=== PATIENT | female | born 1940 | race Caucasian/White ===

== ENCOUNTER 2016-06-07 08:34 | Emergency (ER) | payer MEDICARE ==
[2016-06-07] MEDS ORDERED: IPRATROPIUM-ALBUTEROL 3 ML NEB INHALATION STA (09:10)
[2016-06-07] MEDS ORDERED: predniSONE 20 MG TAB PO STA (09:10)
--- NOTE | 2016-06-07 09:43 | ED ---
SOB HPI - General Chief Complaint: Shortness of Breath Stated Complaint: diff breathing Time Seen by Provider: 06/07/16 09:05 Source: patient, RN notes reviewed Mode of arrival: wheelchair Limitations: no limitations - History of Present Illness Initial Comments: This patient is a 76-year-old woman with history of pulmonary fibrosis, who presents with worsening of her underlying shortness of breath. History is from both patient and her daughter. It seems that things been getting worse since Wednesday. There has also been a cough going on for at least 3 days, which is producing some dark or brown sputum. In addition for the last couple of days patient is having a heavy feeling on across her chest. MD Complaint: shortness of breath, cough -: days(s) Severity: mild Quality: other (Heavy) Consistency: constant Improves With: nothing Worsens With: nothing Known History Of: other (Pulmonary fibrosis) Associated Symptoms: cough, sputum production - Related Data Home Medications Medication Instructions Recorded Confirmed Ascorbic Acid [Vitamin C] 500 mg PO BID 06/07/16 06/07/16 Aspirin EC [Ecotrin Low Dose] 81 mg PO HS 06/07/16 06/07/16 Calcium/Magnesium/Zinc 1 tab PO DAILY 06/07/16 06/07/16 [Wzrfjme-Zyclnxzjl-Orym Tablet] Celecoxib [CeleBREX] 200 mg PO BID 06/07/16 06/07/16 Cholecalciferol [Vitamin D3] 2,000 unit PO DAILY 06/07/16 06/07/16 Cyanocobalamin (Vitamin B-12) 5,000 mcg PO DAILY 06/07/16 06/07/16 [Vitamin B12] L.acidoph,Paracasei, B.lactis 1 cap PO BID 06/07/16 06/07/16 [Probiotic] Latanoprost Ophth [Xalatan 0.005%] 1 drops BOTH EYES 06/07/16 06/07/16 Mometasone/Formoterol [Dulera 200 2 puff INHALATION RT-BID 06/07/16 06/07/16 Mcg/5 Mcg Inhaler] Multivits-Min/Iron/FA/Lutein 1 tab PO DAILY 06/07/16 06/07/16 [Centrum Silver Women Tablet] N-Acetyl Cysteine 600 mg PO BID 06/07/16 06/07/16 [place]-3 Fatty Acids/Fish Oil [Fish 1 cap PO BID 06/07/16 06/07/16 Oil 1,000 mg Softgel] Turmeric Root Extract [Turmeric] 500 mg PO DAILY 06/07/16 06/07/16 Verapamil HCl [Verapamil ER] 240 mg PO DAILY 06/07/16 06/07/16 Vit A/Vit C/Vit E/Zinc/Copper 1 cap PO DAILY 06/07/16 06/07/16 [ICAPS SOFTGEL] predniSONE 5 mg PO DAILY 06/07/16 06/07/16 Previous Rx's Medication Instructions Recorded Doxycycline Hyclate [Vibramycin] 100 mg PO BID #14 cap 06/07/16 predniSONE 60 mg PO DAILY #30 tab 06/07/16 traMADol HCl [Ultram] 50 mg PO Q6H PRN #20 tab 06/07/16 Allergies Allergy/AdvReac Type Severity Reaction Status Date / Time No Known Allergies Allergy Verified 06/07/16 12:15 Review of Systems ROS Statement: Those systems with pertinent positive or pertinent negative responses have been documented in the HPI. ROS Other: All systems not noted in ROS Statement are negative. Constitutional: Denies: fever, chills ENT: Denies: throat pain Respiratory: Reports: as per HPI, cough, dyspnea. Denies: wheezes, hemoptysis, stridor Cardiovascular: Reports: as per HPI, chest pain, dyspnea on exertion. Denies: orthopnea, edema, syncope Gastrointestinal: Denies: abdominal pain, nausea, vomiting Genitourinary: Denies: dysuria, hematuria Musculoskeletal: Denies: back pain Skin: Denies: rash Neurological: Denies: headache, weakness, numbness Past Medical History Past Medical History: Hypertension, Osteoarthritis (OA) Additional Past Medical History / Comment(s): pulmonary fibrosis, glaucoma History of Any Multi-Drug Resistant Organisms: None Reported Past Surgical History: Orthopedic Surgery Additional Past Surgical History / Comment(s): right rotator cuff Past Psychological History: No Psychological Hx Reported Smoking Status: Former smoker Past Alcohol Use History: None Reported Past Drug Use History: None Reported General Exam Limitations: no limitations General appearance: alert, in distress (Tachypnea), cachectic Head exam: Present: atraumatic, normocephalic Eye exam: Present: normal appearance ENT exam: Present: normal oropharynx Respiratory exam: Present: respiratory distress, rales (Reveals throughout), decreased breath sounds. Absent: wheezes, rhonchi, stridor Cardiovascular Exam: Present: regular rate, normal rhythm, normal heart sounds. Absent: systolic murmur, diastolic murmur, rubs, gallop GI/Abdominal exam: Present: soft. Absent: distended, tenderness, guarding, rebound, mass Extremities exam: Present: normal inspection, normal capillary refill. Absent: pedal edema, calf tenderness Back exam: Present: normal inspection. Absent: CVA tenderness (R), CVA tenderness (L) Neurological exam: Present: alert Skin exam: Present: warm, dry, intact, normal color. Absent: rash, cyanosis, diaphoretic, pallor, mottled Course Vital Signs 06/07/16 06/07/16 06/07/16 08:42 09:22 09:41 Temperature 98.0 F Pulse Rate 88 84 Respiratory 20 16 24 Rate Blood Pressure 133/59 130/58 O2 Sat by Pulse 97 97 Oximetry 06/07/16 06/07/16 06/07/16 10:30 10:42 11:31 Temperature Pulse Rate 72 74 93 Respiratory 22 Rate Blood Pressure 135/68 O2 Sat by Pulse 100 Oximetry 06/07/16 11:40 Temperature Pulse Rate 87 Respiratory Rate Blood Pressure O2 Sat by Pulse Oximetry Medical Decision Making - Medical Decision Making Patient is feeling better following treatment and would like to go home. 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 Discussed the appropriate return parameters as well as further care and follow-up. - Lab Data Result diagrams: 06/07/16 09:40 06/07/16 09:40 Lab Results 06/07/16 06/07/16 06/07/16 Range/Units 09:40 09:40 09:40 WBC 11.1 H (3.8-10.6) k/uL RBC 3.70 L (3.80-5.40) m/uL Hgb 10.9 L (11.4-16.0) gm/dL Hct 33.0 L (34.0-46.0) % MCV 89.2 (80.0-100.0) fL MCH 29.4 (25.0-35.0) pg MCHC 32.9 (31.0-37.0) g/dL RDW 14.9 (11.5-15.5) % Plt Count 203 (150-450) k/uL Neutrophils % 83 % Lymphocytes % 4 % Monocytes % 10 % Eosinophils % 0 % Basophils % 0 % Neutrophils # 9.2 H (1.3-7.7) k/uL Lymphocytes # 0.4 L (1.0-4.8) k/uL Monocytes # 1.1 H (0-1.0) k/uL Eosinophils # 0.0 (0-0.7) k/uL Basophils # 0.0 (0-0.2) k/uL D-Dimer (<0.60) mg/L FEU Sodium 141 (137-145) mmol/L Potassium 4.5 (3.5-5.1) mmol/L Chloride 103 (98-107) mmol/L Carbon Dioxide 27 (22-30) mmol/L Anion Gap 11 mmol/L BUN 13 (7-17) mg/dL Creatinine 0.60 (0.52-1.04) mg/dL Est GFR (MDRD) Af Amer >60 (>60 ml/min/1.73 sqM) Est GFR (MDRD) Non-Af >60 (>60 ml/min/1.73 sqM) Glucose 95 (74-99) mg/dL Calcium 9.7 (8.4-10.2) mg/dL Magnesium 2.0 (1.6-2.3) mg/dL Total Bilirubin 0.4 (0.2-1.3) mg/dL AST 48 H (14-36) U/L ALT 41 (9-52) U/L Alkaline Phosphatase 87 (38-126) U/L Total Creatine Kinase 42 (30-135) U/L CK-MB (CK-2) 1.3 (0.0-2.4) ng/mL CK-MB (CK-2) Rel Index 3.1 Troponin I <0.012 (0.000-0.034) ng/mL NT-Pro-B Natriuret Pep pg/mL Total Protein 6.9 (6.3-8.2) g/dL Albumin 3.6 (3.5-5.0) g/dL 06/07/16 06/07/16 Range/Units 09:40 09:40 WBC (3.8-10.6) k/uL RBC (3.80-5.40) m/uL Hgb (11.4-16.0) gm/dL Hct (34.0-46.0) % MCV (80.0-100.0) fL MCH (25.0-35.0) pg MCHC (31.0-37.0) g/dL RDW (11.5-15.5) % Plt Count (150-450) k/uL Neutrophils % % Lymphocytes % % Monocytes % % Eosinophils % % Basophils % % Neutrophils # (1.3-7.7) k/uL Lymphocytes # (1.0-4.8) k/uL Monocytes # (0-1.0) k/uL Eosinophils # (0-0.7) k/uL Basophils # (0-0.2) k/uL D-Dimer 0.79 H (<0.60) mg/L FEU Sodium (137-145) mmol/L Potassium (3.5-5.1) mmol/L Chloride (98-107) mmol/L Carbon Dioxide (22-30) mmol/L Anion Gap mmol/L BUN (7-17) mg/dL Creatinine (0.52-1.04) mg/dL Est GFR (MDRD) Af Amer (>60 ml/min/1.73 sqM) Est GFR (MDRD) Non-Af (>60 ml/min/1.73 sqM) Glucose (74-99) mg/dL Calcium (8.4-10.2) mg/dL Magnesium (1.6-2.3) mg/dL Total Bilirubin (0.2-1.3) mg/dL AST (14-36) U/L ALT (9-52) U/L Alkaline Phosphatase (38-126) U/L Total Creatine Kinase (30-135) U/L CK-MB (CK-2) (0.0-2.4) ng/mL CK-MB (CK-2) Rel Index Troponin I (0.000-0.034) ng/mL NT-Pro-B Natriuret Pep 103 pg/mL Total Protein (6.3-8.2) g/dL Albumin (3.5-5.0) g/dL - EKG Data -: EKG Interpreted by [place] EKG shows normal: sinus rhythm, axis (Normal), intervals (Normal) Interpretation: LVH Disposition Clinical Impression: Acute exacerbation of chronic obstructive airways disease, Pulmonary fibrosis Disposition: HOME SELF-CARE Condition: Fair Instructions: Chronic Bronchitis (ED), Pulmonary Fibrosis (ED) Prescriptions: Doxycycline Hyclate [Vibramycin] 100 mg PO BID #14 cap predniSONE 60 mg PO DAILY #30 tab traMADol HCl [Ultram] 50 mg PO Q6H PRN #20 tab PRN Reason: Pain Referrals: Meghan Ramirez MD [Primary Care Provider] - 1-2 days Severo Rao MD [STAFF PHYSICIAN] - 1-2 days
[2016-06-07 09:54] LABS: Basophils % (A) 0 %; CH 29.9; CHCM 33.8; Eosinophils % (A) 0 %; HDW 3.11; HGB 10.9 gm/dL (11.4-16.0); Luc # (Auto) 0.38; Luc % (Auto) 3; Lymphocytes # (A) 0.4 k/uL (1.0-4.8); Lymphocytes % (A) 4 %; MCH 29.4 pg (25.0-35.0); MCHC 32.9 g/dL (31.0-37.0); MCV 89.2 fL (80.0-100.0); Mean Platelet Volume 7.5; Monocytes # (A) 1.1 k/uL (0-1.0); Monocytes % (A) 10 %; Neutrophils # (A) 9.2 k/uL (1.3-7.7); Neutrophils % (A) 83 %; RDW 14.9 % (11.5-15.5); WBC 11.1 k/uL (3.8-10.6); WBC (Perox) 11.07
[2016-06-07 10:04] LABS: ALT 41 U/L (9-52); AST 48 U/L (14-36); Alkaline Phosphatase 87 U/L (38-126); Anion Gap 11 mmol/L; Blood Urea Nitrogen 13 mg/dL (7-17); Calcium 9.7 mg/dL (8.4-10.2); Carbon Dioxide 27 mmol/L (22-30); Chloride 103 mmol/L (98-107); Glucose 95 mg/dL (74-99); Non-African American GFR(MDRD) >60 (>60 ml/min/1.73 sqM); Potassium 4.5 mmol/L (3.5-5.1); Sodium 141 mmol/L (137-145); Total Bilirubin 0.4 mg/dL (0.2-1.3); Total Protein 6.9 g/dL (6.3-8.2)
--- NOTE | 2016-06-07 10:07 | XR ---
EXAMINATION TYPE: XR chest 1V portable DATE OF EXAM: 06/07/2016 9:58 AM COMPARISON: 06/10/2012 HISTORY: Cough TECHNIQUE: Single frontal view of the chest is obtained. FINDINGS: Coarsened interstitial pattern seen. There is mild cardiomegaly. No pneumothorax. Arthropa thy shoulders. Findings are similar to the previous exam. Somewhat irregular 1 cm nodule lobe. IMPRESSION: 1. Findings suggest pulmonary fibrosis with no acute infiltrate. 2. There is a 1 cm area of nodularity right upper lobe. This may represent superimposed structures. R ecommend short-term follow-up PA and lateral view chest to exclude pulmonary nodule.
[2016-06-07 10:13] LABS: Creatine Kinase 42 U/L (30-135)
[2016-06-07 10:27] LABS: Creatine Kinase MB 1.3 ng/mL (0.0-2.4); Troponin I <0.012 ng/mL (0.000-0.034)
[2016-06-07] MEDS ORDERED: ALBUTEROL NEBULIZED 2.5 MG/3 ML INHALATION STA (10:58)
[2016-06-07] MEDS ORDERED: DOXYCYCLINE 50 MG CAP PO STA (10:58)
[2016-06-07] MEDS ORDERED: traMADol 50 MG TAB PO STA (12:31)
[2016-06-07 12:41] VITALS: TEMP 97.9
[2016-06-07 13:06] VITALS: BP 119/56; PULSE 84; RESP 15
== END 2016-06-07 13:34 | disposition home or self-care (01) ==
LOC: EC 08:34
DX: J44.1 Chronic obstructive pulmonary disease with (acute) exacerbation (principal); J84.10 Pulmonary fibrosis, unspecified; Z79.51 Long term (current) use of inhaled steroids; I10 Essential (primary) hypertension; Z79.82 Long term (current) use of aspirin; Z79.899 Other long term (current) drug therapy; M19.90 Unspecified osteoarthritis, unspecified site; Z87.891 Personal history of nicotine dependence
CPT/HCPCS: 36415; 94640 ×2; 93005; 85379; 83880; 80053; 82550; 82553; 83735; 84484; 85025; 71010; 99285; J7512

== ENCOUNTER 2016-06-12 10:37 | Inpatient (IN) | payer MEDICARE ==
--- NOTE | 2016-06-12 11:09 | ED ---
General Adult HPI - General Chief complaint: Shortness of Breath Stated complaint: BRYCE Time Seen by Provider: 06/12/16 11:04 Source: patient, family, RN notes reviewed, old records reviewed Mode of arrival: wheelchair Limitations: no limitations - History of Present Illness Initial comments: This is a 76-year-old female the ER for evaluation of shortness of breath, patient has significant history of asthma COPD from pulmonary fibrosis and hypertension. Patient is been on. She was outpatient basis without any help. Patient states her heart rate ranges from 80s to 150s with no history of A. fib or a flutter. Patient denies any specific chest pain at this time, shortness of breath and symptoms are worse with exertion. Again no travel history nursing hospitalizations or sick contacts. No productive cough no fever - Related Data Home Medications Medication Instructions Recorded Confirmed Ascorbic Acid [Vitamin C] 1,000 mg PO BID 06/07/16 06/12/16 Aspirin EC [Ecotrin Low Dose] 81 mg PO HS 06/07/16 06/12/16 Celecoxib [CeleBREX] 200 mg PO BID PRN 06/07/16 06/12/16 Cholecalciferol [Vitamin D3] 5,000 unit PO DAILY 06/07/16 06/12/16 Cyanocobalamin (Vitamin B-12) 5,000 mcg PO DAILY 06/07/16 06/12/16 [Vitamin B12] L.acidoph,Paracasei, B.lactis 2 cap PO DAILY 06/07/16 06/12/16 [Probiotic] Latanoprost Ophth [Xalatan 0.005%] 1 drops BOTH EYES HS 06/07/16 06/12/16 Mometasone/Formoterol [Dulera 200 2 puff INHALATION RT-BID 06/07/16 06/12/16 Mcg/5 Mcg Inhaler] Multivits-Min/Iron/FA/Lutein 1 tab PO DAILY 06/07/16 06/12/16 [Centrum Silver Women Tablet] N-Acetyl Cysteine 600 mg PO BID 06/07/16 06/12/16 [place]-3 Fatty Acids/Fish Oil [Fish 1 cap PO BID 06/07/16 06/12/16 Oil 1,000 mg Softgel] Turmeric Root Extract [Turmeric] 500 mg PO DAILY 06/07/16 06/12/16 Verapamil HCl [Verapamil ER] 240 mg PO DAILY 06/07/16 06/12/16 Vit A/Vit C/Vit E/Zinc/Copper 1 cap PO DAILY 06/07/16 06/12/16 [ICAPS SOFTGEL] predniSONE 5 mg PO DAILY 06/07/16 06/12/16 Calcium Carbonate [Calcium] 600 mg PO DAILY 06/12/16 06/12/16 Previous Rx's Medication Instructions Recorded Doxycycline Hyclate [Vibramycin] 100 mg PO BID #14 cap 06/07/16 predniSONE 60 mg PO DAILY #30 tab 06/07/16 Allergies Allergy/AdvReac Type Severity Reaction Status Date / Time No Known Allergies Allergy Verified 06/12/16 11:06 Review of Systems ROS Statement: Those systems with pertinent positive or pertinent negative responses have been documented in the HPI. ROS Other: All systems not noted in ROS Statement are negative. Past Medical History Past Medical History: Hypertension, Osteoarthritis (OA) Additional Past Medical History / Comment(s): pulmonary fibrosis, glaucoma History of Any Multi-Drug Resistant Organisms: None Reported Past Surgical History: Orthopedic Surgery Additional Past Surgical History / Comment(s): right rotator cuff Past Psychological History: No Psychological Hx Reported Smoking Status: Former smoker Past Alcohol Use History: None Reported Past Drug Use History: None Reported General Exam Limitations: no limitations General appearance: alert, in no apparent distress Head exam: Present: atraumatic, normocephalic, normal inspection Eye exam: Present: normal appearance, PERRL, EOMI. Absent: scleral icterus, conjunctival injection, periorbital swelling ENT exam: Present: normal exam, mucous membranes moist Neck exam: Present: normal inspection. Absent: tenderness, meningismus, lymphadenopathy Respiratory exam: Present: normal lung sounds bilaterally, wheezes, decreased breath sounds, prolonged expiratory. Absent: respiratory distress, rales, rhonchi, stridor Cardiovascular Exam: Present: normal rhythm, tachycardia, irregular rhythm, normal heart sounds. Absent: systolic murmur, diastolic murmur, rubs, gallop, clicks GI/Abdominal exam: Present: soft, normal bowel sounds. Absent: distended, tenderness, guarding, rebound, rigid Extremities exam: Present: normal inspection, full ROM, normal capillary refill. Absent: tenderness, pedal edema, joint swelling, calf tenderness Back exam: Present: normal inspection Neurological exam: Present: alert, oriented X3, CN II-XII intact Psychiatric exam: Present: normal affect, normal mood Skin exam: Present: warm, dry, intact, normal color. Absent: rash Course Vital Signs 06/12/16 06/12/16 06/12/16 10:39 11:17 11:19 Temperature 99.4 F 101.4 F H Pulse Rate 107 H Pulse Rate [ 146 H Apical] Respiratory 24 Rate Blood Pressure 140/93 O2 Sat by Pulse 93 L Oximetry 06/12/16 06/12/16 11:28 11:43 Temperature Pulse Rate 148 H 89 Pulse Rate [ Apical] Respiratory Rate Blood Pressure O2 Sat by Pulse Oximetry - Reevaluation(s) Reevaluation #1: 06/12/16 12:19 Does have good rate control at this time, fever control and feeling better Reevaluation #2: 06/12/16 12:19 Patient is still short of breath aside from region EKG Findings - EKG Comments: EKG Findings:: EKG shows a flutter rate of 154, QRS 80, QTC 432 Medical Decision Making - Medical Decision Making Studies of the etiology of shortness of breath cough congestion fever, patient' s positive pneumonia and x-ray, patient also had A. fib with RVR which is currently rate controlled. 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 fib with RVR, on anticoagulation, patient started on IV antibiotics broad-spectrum since she was recently admitted to the hospital. - Lab Data Result diagrams: 06/12/16 11:14 06/12/16 11:14 Lab Results 06/12/16 06/12/16 06/12/16 Range/Units 11:14 11:14 11:14 WBC 23.1 H (3.8-10.6) k/uL RBC 3.83 (3.80-5.40) m/uL Hgb 11.1 L (11.4-16.0) gm/dL Hct 33.6 L (34.0-46.0) % MCV 87.8 (80.0-100.0) fL MCH 28.9 (25.0-35.0) pg MCHC 32.9 (31.0-37.0) g/dL RDW 14.4 (11.5-15.5) % Plt Count 297 (150-450) k/uL Neutrophils % 84 % Lymphocytes % 4 % Monocytes % 10 % Eosinophils % 0 % Basophils % 0 % Neutrophils # 19.3 H (1.3-7.7) k/uL Lymphocytes # 0.8 L (1.0-4.8) k/uL Monocytes # 2.2 H (0-1.0) k/uL Eosinophils # 0.0 (0-0.7) k/uL Basophils # 0.1 (0-0.2) k/uL PT (9.0-12.0) sec INR (<1.1) APTT (22.0-30.0) sec Sodium 144 (137-145) mmol/L Potassium 4.0 (3.5-5.1) mmol/L Chloride 105 (98-107) mmol/L Carbon Dioxide 26 (22-30) mmol/L Anion Gap 13 mmol/L BUN 18 H (7-17) mg/dL Creatinine 0.60 (0.52-1.04) mg/dL Est GFR (MDRD) Af Amer >60 (>60 ml/min/1.73 sqM) Est GFR (MDRD) Non-Af >60 (>60 ml/min/1.73 sqM) Glucose 89 (74-99) mg/dL Plasma Lactic Acid Gaurav 1.8 (0.7-2.0) mmol/L Calcium 9.6 (8.4-10.2) mg/dL Phosphorus 2.3 L (2.5-4.5) mg/dL Magnesium 2.0 (1.6-2.3) mg/dL Total Bilirubin 0.8 (0.2-1.3) mg/dL AST 36 (14-36) U/L ALT 53 H (9-52) U/L Alkaline Phosphatase 93 (38-126) U/L Total Protein 6.8 (6.3-8.2) g/dL Albumin 3.3 L (3.5-5.0) g/dL 06/12/16 Range/Units 11:14 WBC (3.8-10.6) k/uL RBC (3.80-5.40) m/uL Hgb (11.4-16.0) gm/dL Hct (34.0-46.0) % MCV (80.0-100.0) fL MCH (25.0-35.0) pg MCHC (31.0-37.0) g/dL RDW (11.5-15.5) % Plt Count (150-450) k/uL Neutrophils % % Lymphocytes % % Monocytes % % Eosinophils % % Basophils % % Neutrophils # (1.3-7.7) k/uL Lymphocytes # (1.0-4.8) k/uL Monocytes # (0-1.0) k/uL Eosinophils # (0-0.7) k/uL Basophils # (0-0.2) k/uL PT 10.7 (9.0-12.0) sec INR 1.1 (<1.1) APTT 20.7 L (22.0-30.0) sec Sodium (137-145) mmol/L Potassium (3.5-5.1) mmol/L Chloride (98-107) mmol/L Carbon Dioxide (22-30) mmol/L Anion Gap mmol/L BUN (7-17) mg/dL Creatinine (0.52-1.04) mg/dL Est GFR (MDRD) Af Amer (>60 ml/min/1.73 sqM) Est GFR (MDRD) Non-Af (>60 ml/min/1.73 sqM) Glucose (74-99) mg/dL Plasma Lactic Acid Gaurav (0.7-2.0) mmol/L Calcium (8.4-10.2) mg/dL Phosphorus (2.5-4.5) mg/dL Magnesium (1.6-2.3) mg/dL Total Bilirubin (0.2-1.3) mg/dL AST (14-36) U/L ALT (9-52) U/L Alkaline Phosphatase (38-126) U/L Total Protein (6.3-8.2) g/dL Albumin (3.5-5.0) g/dL - Radiology Data Radiology results: report reviewed (Chest x-ray positive for pneumonia), image reviewed Critical Care Time Critical Care Time: Yes Total Critical Care Time: 31 Disposition Clinical Impression: Acute exacerbation of chronic obstructive airways disease, Pulmonary fibrosis, Fever, Community acquired pneumonia, Atrial fibrillation with RVR Disposition: ADMITTED IP TO THIS [facility] Condition: Serious Referrals: Meghan Ramirez MD [Primary Care Provider] - 1-2 days
[2016-06-12] MEDS ORDERED: DILTIAZEM 5 MG/ML 5 ML VIAL IVP STA (11:13)
[2016-06-12] MEDS ORDERED: IPRATROPIUM-ALBUTEROL 3 ML NEB INHALATION STA (11:13)
[2016-06-12] MEDS ORDERED: KETOROLAC 30 MG/ML 1 ML VIAL IVP STA (11:30)
[2016-06-12] MEDS ORDERED: ACETAMINOPHEN IV (For NPO) 1,000 MG in EMPTY BAG 1 BAG IVPB STA (11:30)
[2016-06-12 11:33] LABS: Basophils # (A) 0.1 k/uL (0-0.2); Basophils % (A) 0 %; CH 29.6; CHCM 33.9; Eosinophils % (A) 0 %; HCT 33.6 % (34.0-46.0); HDW 3.28; HGB 11.1 gm/dL (11.4-16.0); Luc # (Auto) 0.69; Luc % (Auto) 3; Lymphocytes # (A) 0.8 k/uL (1.0-4.8); Lymphocytes % (A) 4 %; MCH 28.9 pg (25.0-35.0); MCHC 32.9 g/dL (31.0-37.0); MCV 87.8 fL (80.0-100.0); Mean Platelet Volume 7.1; Monocytes # (A) 2.2 k/uL (0-1.0); Monocytes % (A) 10 %; Neutrophils # (A) 19.3 k/uL (1.3-7.7); Neutrophils % (A) 84 %; RBC 3.83 m/uL (3.80-5.40); RDW 14.4 % (11.5-15.5); WBC 23.1 k/uL (3.8-10.6); WBC (Perox) 24.06
[2016-06-12 11:53] LABS: ALT 53 U/L (9-52); AST 36 U/L (14-36); Alkaline Phosphatase 93 U/L (38-126); Anion Gap 13 mmol/L; Blood Urea Nitrogen 18 mg/dL (7-17); Calcium 9.6 mg/dL (8.4-10.2); Carbon Dioxide 26 mmol/L (22-30); Chloride 105 mmol/L (98-107); Glucose 89 mg/dL (74-99); Non-African American GFR(MDRD) >60 (>60 ml/min/1.73 sqM); Phosphorous 2.3 mg/dL (2.5-4.5); Sodium 144 mmol/L (137-145); Total Bilirubin 0.8 mg/dL (0.2-1.3); Total Protein 6.8 g/dL (6.3-8.2)
[2016-06-12 12:08] LABS: INR 1.1 (<1.1); Prothrombin Time 10.7 sec (9.0-12.0)
[2016-06-12 12:14] LABS: Partial Thromboplastin Time 20.7 sec (22.0-30.0)
[2016-06-12] MEDS ORDERED: LEVOFLOXACIN 750MG-D5W PMX 750 MG in DEXTROSE/WATER 1 150ML.BAG IVPB STA (12:17)
--- NOTE | 2016-06-12 12:18 | XR ---
EXAMINATION TYPE: XR chest 1V portable DATE OF EXAM: 06/12/2016 12:12 PM COMPARISON: Chest x-ray June 07, 2016 HISTORY: Cough, congestion, and fever. TECHNIQUE: Single AP portable frontal view of the chest is obtained. FINDINGS: There is reticular interstitial changes throughout both lungs suggesting fibrosis. Acute a reas of infiltrate are difficult to entirely exclude for reference right midlung and left basilar lev els. Low lung volumes are redemonstrated. The cardiac silhouette size is stable and upper limits of normal with atherosclerotic thoracic aorta. The osseous structures are demineralized. IMPRESSION: Low lung volumes with moderate to severe chronic interstitial fibrosis bilaterally, acut e areas of infiltrate right mid and bibasilar levels are difficult to exclude on background of chroni c change.
[2016-06-12] MEDS ORDERED: PNEUMONIA PROTOCOL UTILIZED 1 EACH MISC PO PRN (12:21)
[2016-06-12] MEDS ORDERED: PIPERACILLIN-TAZOBACTAM 3.375 GM in DEXTROSE/WATER 1 50ML.BAG IVPB STA (12:21)
[2016-06-12] MEDS ORDERED: HEPARIN SODIUM,PORCINE 5,000 UNIT/ML 1 ML VIAL IV ONE (12:21)
[2016-06-12] MEDS: HEPARIN SODIUM,PORCINE/D5W PMX 25,000 UNIT in DEXTROSE/WATER 1 500ML.BAG IV SCH (13:26)
[2016-06-12] MEDS: SODIUM CHLORIDE 0.9% 1,000 ML IV SCH ×2 (15:14→22:54)
[2016-06-12] MEDS: IPRATROPIUM-ALBUTEROL 3 ML NEB INHALATION SCH ×2 (15:45→20:21)
[2016-06-12] MEDS ORDERED: IPRATROPIUM-ALBUTEROL 3 ML NEB INHALATION PRN (15:46)
--- NOTE | 2016-06-12 16:03 | P.HPIM ---
History of Present Illness H&P Date: 06/12/16 Chief Complaint: Shortness of breath with cough and tachycardia This is a 76-year-old female, patient of Dr. Ramirez. She has a known past medical history of pulmonary fibrosis and hypertension. Patient presented to the emergency room with complaints of worsening shortness of breath, cough and tachycardia. Patient was in the emergency room on June 07 and treated for bronchitis and COPD exacerbation. She was sent home with doxycycline and her prednisone was increased to 60 mg daily. Patient reports that she has not had much improvement with the cough or shortness of breath even with medications. She became concerned because earlier today she started to be tachycardic. She reports that her heart was racing she checked her pulse ox and the heart rate was up into the 150s. This was new for her's she came into the emergency room for evaluation. EKG had shown atrial flutter with a heart rate of 154. Patient was given IV Cardizem push with IV heparin. Patient did convert back to normal sinus rhythm and was admitted to the telemetry floor. Chest x-ray shows low lung volumes with moderate to severe chronic interstitial fibrosis bilaterally, acute areas of infiltrate in the right mid and by basilar areas are difficult to exclude on background of chronic change. Patient was started on IV Levaquin and IV Zosyn for possible pneumonia. She did have a temp of 101.4 and a white count of 23.1. Both pulmonary and cardiology services have been consulted due to pneumonia and atrial flutter with rapid ventricular response. Patient denies any chills sweats, any muscle aches or pains. She denies any nausea or vomiting. Denies any bowel movement changes. Denies any burning with urination. Review of Systems Please refer to chart for any further details Past Medical History Past Medical History: Hypertension, Osteoarthritis (OA), Respiratory Disorder Additional Past Medical History / Comment(s): Home O2 at 2L/NC ATC, pulmonary fibrosis, bronchitis, glaucoma bilaterally, OA multiple joints, History of Any Multi-Drug Resistant Organisms: None Reported Past Surgical History: Orthopedic Surgery Additional Past Surgical History / Comment(s): right rotator cuff, colonoscopy- normal Past Anesthesia/Blood Transfusion Reactions: Motion Sickness, Postoperative Nausea & Vomiting (PONV) Past Psychological History: No Psychological Hx Reported Additional Psychological History / Comment(s): Pt resides alone. She uses no assistive device. She drives. She has home oxygen. Smoking Status: Former smoker Past Alcohol Use History: None Reported Additional Past Alcohol Use History / Comment(s): Pt started smoking as a teen and quit 35-40 yrs ago. Past Drug Use History: None Reported - Past Family History Father Family Medical History: Liver Disease Mother Family Medical History: Respiratory Disorder Additional Family Medical History / Comment(s): Pulmonary fibrosis- of this at the age of 83 or 84yrs. Medications and Allergies Home Medications Medication Instructions Recorded Confirmed Type Ascorbic Acid [Vitamin C] 1,000 mg PO BID 06/07/16 06/12/16 History Aspirin EC [Ecotrin Low Dose] 81 mg PO HS 06/07/16 06/12/16 History Celecoxib [CeleBREX] 200 mg PO BID PRN 06/07/16 06/12/16 History Cholecalciferol [Vitamin D3] 5,000 unit PO DAILY 06/07/16 06/12/16 History Cyanocobalamin (Vitamin B-12) 5,000 mcg PO DAILY 06/07/16 06/12/16 History [Vitamin B12] L.acidoph,Paracasei, B.lactis 2 cap PO DAILY 06/07/16 06/12/16 History [Probiotic] Latanoprost Ophth [Xalatan 0.005%] 1 drops BOTH EYES HS 06/07/16 06/12/16 History Mometasone/Formoterol [Dulera 200 2 puff INHALATION RT-BID 06/07/16 06/12/16 History Mcg/5 Mcg Inhaler] Multivits-Min/Iron/FA/Lutein 1 tab PO DAILY 06/07/16 06/12/16 History [Centrum Silver Women Tablet] N-Acetyl Cysteine 600 mg PO BID 06/07/16 06/12/16 History [place]-3 Fatty Acids/Fish Oil [Fish 1 cap PO BID 06/07/16 06/12/16 History Oil 1,000 mg Softgel] Turmeric Root Extract [Turmeric] 500 mg PO DAILY 06/07/16 06/12/16 History Verapamil HCl [Verapamil ER] 240 mg PO DAILY 06/07/16 06/12/16 History Vit A/Vit C/Vit E/Zinc/Copper 1 cap PO DAILY 06/07/16 06/12/16 History [ICAPS SOFTGEL] predniSONE 5 mg PO DAILY 06/07/16 06/12/16 History Calcium Carbonate [Calcium] 600 mg PO DAILY 06/12/16 06/12/16 History Allergies Allergy/AdvReac Type Severity Reaction Status Date / Time No Known Allergies Allergy Verified 06/12/16 11:06 Physical Exam Vitals: Vital Signs Temp Pulse Resp BP Pulse Ox 06/12/16 15:45 88 06/12/16 14:27 98.2 F 86 18 101/57 96 06/12/16 13:12 86 93/52 94 L 06/12/16 12:42 88 98/45 95 06/12/16 12:27 90 106/51 94 L Intake and Output 06/12/16 06/12/16 06/12/16 06:59 14:59 22:59 Other: Weight 55.7 kg Patient Weight 06/13/16 06:59 Weight 55.7 kg Head normocephalic Neck supple Lungs crackles noted bilaterally from the pulmonary fibrosis Heart regular rate and rhythm S1-S2, no rub or gallop Abdomen is soft nontender nondistended positive bowel sounds no hepatosplenomegaly Extremities no edema Neuro alert and orientated to 3 Results CBC & Chem 7: 06/12/16 11:14 06/12/16 11:14 Thrombosis Risk Factor Assmnt - Choose All That Apply Any of the Below Risk Factors Present?: Yes Each Factor Represents 1 point: Serious lung disease incl. pneumonia (< 1month) Other Risk Factors: Yes Each Risk Factor Represents 3 Points: Age 75 years or older Other congenital or acquired thrombophilia - If yes, enter type in comment: No Thrombosis Risk Factor Assessment Total Risk Factor Score: 4 Thrombosis Risk Factor Assessment Level: Moderate Risk Assessment and Plan Plan: 1. Productive cough with shortness of breath likely secondary to pneumonia. Chest x-ray is showing possible acute areas of infiltrate in the right mid and basilar levels. Patient was started on IV Levaquin and IV Zosyn. Pulmonary service consulted. Check sputum culture. Start nebulizer treatments 4 times a day and as needed. We'll resume the prednisone 60 mg daily until evaluated by pulmonary service 2. Sepsis secondary to pneumonia. Patient presented with temp of 101.4 and leukocytosis. Continue with IV fluids. Blood culture and urine culture have been ordered. Lactic acid level 1.8. Influenza screening pending 3. New onset of Atrial flutter with rapid ventricular response present on admission: Patient has converted to normal sinus rhythm. She did receive 1 dose of IV Cardizem in the emergency room. Continue with IV heparin. Cardiology has been consulted. Check thyroid studies 4. Essential hypertension resume patient's verapamil 5. History of pulmonary fibrosis: Followed by Dr. Rao outpatient for pulmonology 6. GI prophylaxis Pepcid and DVT prophylaxis IV heparin Time with Patient: Greater than 30 (Greater than 50% of the total time spent in counseling and coordination of care.I performed an examination of the patient and discussed their management with the physician Dental Laboratory Technician. I have reviewed the Physician Dental Laboratory Technician's notes and agree with the documented findings and plan of care)
[2016-06-12 17:56] LABS: Appearance,Urine Clear (Clear); Bilirubin,Urine Negative (Negative); Glucose,Urine (UA) Negative (Negative); Ketones,Urine Negative (Negative); Leukocyte Esterase,Urine Negative (Negative); Nitrite,Urine Negative (Negative); Protein,Urine Negative (Negative); Specific Gravity,Urine 1.009 (1.001-1.035); UA Billing (MACRO vs. MICRO) CHEM; Urobilinogen,Urine <2.0 mg/dL (<2.0)
[2016-06-12] MEDS: predniSONE 20 MG TAB PO SCH (17:59)
[2016-06-12] MEDS: SYMBICORT 160-4.5 MCG INHALER INHALATION SCH ×2 (20:21→20:23)
[2016-06-12] MEDS: ASPIRIN 81 MG CHEW PO SCH (20:36)
[2016-06-12] MEDS: ASCORBIC ACID 500 MG TAB PO SCH (20:36)
[2016-06-12] MEDS: PIPERACILLIN-TAZOBACTAM 3.375 GM in DEXTROSE/WATER 1 50ML.BAG IVPB SCH (20:37)
[2016-06-12] MEDS: LATANOPROST 0.005% OPHTH DROPS 2.5 ML BTL BOTH EYES SCH (20:37)
[2016-06-12] MEDS: MELOXICAM 7.5 MG TAB PO PRN (21:02)
[2016-06-12] MEDS: HEPARIN SODIUM,PORCINE 5,000 UNIT/ML 1 ML VIAL IV PRN (21:03)
[2016-06-12] MEDS: BENZOCAINE/MENTHOL LOZENG 1 EACH LOZENGE MUCOUS MEM PRN (22:19)
[2016-06-12] MEDS: OSELTAMIVIR 75 MG CAP PO SCH (22:19)
[2016-06-12] MEDS: ACETAMINOPHEN TAB 325 MG TAB PO PRN (22:20)
[2016-06-13] MEDS: ACETAMINOPHEN TAB 325 MG TAB PO PRN ×2 (04:06→12:39)
[2016-06-13] MEDS: BENZOCAINE/MENTHOL LOZENG 1 EACH LOZENGE MUCOUS MEM PRN (04:14)
[2016-06-13 06:52] LABS: Basophils # (A) 0.1 k/uL (0-0.2); Basophils % (A) 0 %; CH 29.5; CHCM 33.1; Eosinophils % (A) 0 %; HCT 30.8 % (34.0-46.0); HDW 3.18; HGB 9.7 gm/dL (11.4-16.0); Luc # (Auto) 0.32; Luc % (Auto) 1; Lymphocytes # (A) 0.6 k/uL (1.0-4.8); Lymphocytes % (A) 2 %; MCH 28.3 pg (25.0-35.0); MCHC 31.6 g/dL (31.0-37.0); MCV 89.6 fL (80.0-100.0); Mean Platelet Volume 7.8; Monocytes # (A) 1.4 k/uL (0-1.0); Monocytes % (A) 6 %; Neutrophils # (A) 20.8 k/uL (1.3-7.7); Neutrophils % (A) 90 %; RBC 3.44 m/uL (3.80-5.40); RDW 14.6 % (11.5-15.5); WBC 23.1 k/uL (3.8-10.6); WBC (Perox) 25.16
[2016-06-13] MEDS: PIPERACILLIN-TAZOBACTAM 3.375 GM in DEXTROSE/WATER 1 50ML.BAG IVPB SCH (07:03)
[2016-06-13 07:08] LABS: ALT 42 U/L (9-52); AST 33 U/L (14-36); Alkaline Phosphatase 86 U/L (38-126); Anion Gap 9 mmol/L; Blood Urea Nitrogen 11 mg/dL (7-17); Carbon Dioxide 27 mmol/L (22-30); Chloride 106 mmol/L (98-107); Glucose 88 mg/dL (74-99); Non-African American GFR(MDRD) >60 (>60 ml/min/1.73 sqM); Potassium 3.7 mmol/L (3.5-5.1); Sodium 142 mmol/L (137-145); Total Bilirubin 0.9 mg/dL (0.2-1.3)
--- NOTE | 2016-06-13 07:33 | XR ---
EXAMINATION TYPE: XR chest 2V DATE OF EXAM: 06/13/2016 7:03 AM HISTORY: Shortness of breath. COMPARISON: To 317 TECHNIQUE: 2 views of the chest are submitted. FINDINGS: Demonstrated are scattered senescent parenchymal change. Increasing airspace infiltrates are noted within the right upper lobe as well as the left lower lobe and to a lesser extent the right lower lobe. The heart is stable. Hilar and mediastinal structures are within normal limits. Degenerative changes are seen of the dorsal spine. IMPRESSION: 1. Increasing airspace infiltrates are noted within the right upper lobe as well as the left lower l obe and to a lesser extent the right lower lobe.
[2016-06-13] MEDS: OSELTAMIVIR 75 MG CAP PO SCH ×2 (08:20→21:08)
[2016-06-13] MEDS: ASCORBIC ACID 500 MG TAB PO SCH ×2 (08:20→21:08)
[2016-06-13] MEDS: predniSONE 20 MG TAB PO SCH (08:20)
[2016-06-13] MEDS: SYMBICORT 160-4.5 MCG INHALER INHALATION SCH ×4 (08:22→20:00)
[2016-06-13] MEDS: IPRATROPIUM-ALBUTEROL 3 ML NEB INHALATION SCH ×4 (08:22→19:57)
[2016-06-13] MEDS ORDERED: CALCIUM CARBONATE 500 MG CHEWABLE PO SCH (09:00)
[2016-06-13] MEDS ORDERED: LACTOBACILLUS ACIDOPH & BULGAR 1 EACH PACKET PO SCH (09:00)
[2016-06-13] MEDS ORDERED: FAMOTIDINE 20 MG TAB PO SCH (09:00)
[2016-06-13] MEDS ORDERED: CHOLECALCIFEROL 1,000 UNIT TAB PO SCH (09:00)
[2016-06-13] MEDS ORDERED: VERAPAMIL SR 240 MG TABLET.ER PO SCH (09:00)
[2016-06-13] MEDS: SODIUM CHLORIDE 0.9% 1,000 ML IV SCH ×2 (09:06→15:13)
[2016-06-13] MEDS: HEPARIN SODIUM,PORCINE 5,000 UNIT/ML 1 ML VIAL IV PRN (09:08)
[2016-06-13] MEDS: HEPARIN SODIUM,PORCINE/D5W PMX 25,000 UNIT in DEXTROSE/WATER 1 500ML.BAG IV SCH (09:09)
[2016-06-13 11:17] VITALS: BMI 24.0
--- NOTE | 2016-06-13 11:55 | ECHOF ---
Referral Reason:Per cardiology MEASUREMENTS -------- HEIGHT: 154.9 cm WEIGHT: 55.8 kg BP: IVSd: 1.3 cm (0.6 - 1.1) LVIDd: 2.6 cm (3.9 - 5.3) LVPWd: 1.4 cm (0.6 - 1.1) IVSs: 1.8 cm LVIDs: 1.6 cm LVPWs: 1.4 cm LAESV Index (A-L): 32.87 ml/m Ao Diam: 3.2 cm (2.0 - 3.7) AV Cusp: 2.3 cm (1.5 - 2.6) LA Diam: 3.4 cm (2.7 - 3.8) MV EXCURSION: 15.792 mm (> 18.000) MV EF SLOPE: 45 mm/s (70 - 150) EPSS: 0.3 cm MV E Brad: 0.72 m/s MV DecT: 202 ms MV A Brad: 0.93 m/s MV E/A Ratio: 0.77 AR PHT: 526 ms RAP: 5.00 mmHg RVSP: 45.07 mmHg FINDINGS -------- Sinus rhythm with extra systolic beats. This was a technically good study. There is moderate concentric left ventricular hypertrophy. Overall left ventricular systolic function is normal with, an EF between 55 - 60 %. The right ventricle is normal in size and function. LA is midly dilated 29-33ml/m2. The right atrium is normal in size. Aortic valve is trileaflet and is mildly thickened. There is mild aortic regurgitation. The mitral valve leaflets are mildly thickened. Mild mitral annular calcification present. Mild mitral regurgitation is present. Moderate to severe tricuspid regurgitation present. There is mild pulmonary hypertension. The right ventricular systolic pressure, as measured by Doppler, is 45.07mmHg. Pulmonic valve appears structurally normal. The aortic root size is normal. There is a small, generalized pericardial effusion present. CONCLUSIONS -------- 1. Sinus rhythm with extra systolic beats. 2. The mitral valve leaflets are mildly thickened. 3. Mild mitral annular calcification present. 4. Mild mitral regurgitation is present. 5. Moderate to severe tricuspid regurgitation present. 6. There is mild pulmonary hypertension. 7. The right ventricular systolic pressure, as measured by Doppler, is 45.07mmHg. 8. Pulmonic valve appears structurally normal. 9. The aortic root size is normal. 10. There is a small, generalized pericardial effusion present. 11. This was a technically good study. 12. There is moderate concentric left ventricular hypertrophy. 13. Overall left ventricular systolic function is normal with, an EF between 55 - 60 %. 14. The right ventricle is normal in size and function. 15. LA is midly dilated 29-33ml/m2. 16. The right atrium is normal in size. 17. Aortic valve is trileaflet and is mildly thickened. 18. There is mild aortic regurgitation. BED LABORER: Marcelina Rosado RDCS
[2016-06-13] MEDS ORDERED: MULTIVITAMINS, THERA 1 EACH TAB PO SCH (12:00)
[2016-06-13] MEDS ORDERED: LEVOFLOXACIN 500MG-D5W PMX 500 MG in DEXTROSE/WATER 1 100ML.BAG IVPB SCH (12:00)
[2016-06-13] MEDS ORDERED: LEVOFLOXACIN 750MG-D5W PMX 750 MG in DEXTROSE/WATER 1 150ML.BAG IVPB SCH (12:00)
[2016-06-13] MEDS ORDERED: CYANOCOBALAMIN 500 MCG TAB PO SCH (12:00)
[2016-06-13] MEDS ORDERED: VIT A,C & E-LUTEIN-MINERALS 1 EACH TAB PO SCH (12:00)
--- NOTE | 2016-06-13 12:14 | CONS ---
DATE OF CONSULTATION: CHIEF COMPLAINT: Atrial fibrillation. Jennifer is a 76-year-old lady with history of pulmonary fibrosis who presented to hospital with symptoms of shortness of breath, cough and tachycardia. As outpatient, she was being treated with bronchitis and COPD exacerbation with antibiotics and steroids. Came in to hospital and was found to be in atrial fibrillation with rapid ventricular rate for which Cardiology has been consulted. On presentation, she had pneumonia with temperature of 101.4. White cell count was elevated. She was in A. fib with RVR but converted back to sinus rhythm and this morning, she in sinus rhythm. She denies any chest pain. Her predominant symptom was moderate to severe palpitations that she had. Past medical history is significant for pulmonary fibrosis, hypertension, osteoarthritis, and COPD. Patient is on home O2, aspirin, Celebrex, B12, fish oil, tumeric, verapamil, prednisone, calcium. ALLERGIES: There are no known drug allergies. Family history is negative for premature coronary artery disease. Social history is negative for current smoking, EtOH abuse, or drug abuse. REVIEW OF SYSTEMS: HEENT: Unremarkable. CARDIAC: As described above. RESPIRATORY: Significant for shortness of breath and cough. GI: Negative. GENITOURINARY: Negative. ALLERGY/IMMUNOLOGICAL: Negative. MUSCULOSKELETAL: Significant for arthritis. PSYCHOSOCIAL: Negative. ENDOCRINE: Negative. HEMATOLOGICAL: Negative. DERM: Negative. CONSTITUTIONAL: Negative. ONCOLOGICAL: Negative. The rest of the system review is not relevant. On exam, heart rate is 96 beats per minute, afebrile. Blood pressure is 150/70, respiratory rate is 18. There is no jugular venous distention. Carotid upstroke is normal. There is no bruit. Chest exam reveals bilateral crackles and rhonchi. Heart exam reveals first and second heart sounds. No gallop. There is a systolic murmur at the left lower sternal border. Abdomen is soft. Exam of the extremities did not reveal any edema. Peripheral pulses are felt. Labs show a hemoglobin of 9.7 platelet count is 259. Potassium is 3.7. Creatinine is 0.6. Patient is positive for influenza A. EKG shows atrial fibrillation with rapid ventricular rate. Subsequently she converted to sinus rhythm. ASSESSMENT: 1. Atrial fibrillation with rapid ventricular rate new onset. 2. Chronic obstructive pulmonary disease exacerbation. 3. Influenza. PLAN: I am going to review the echocardiogram on her, stop the Cardizem, stop the IV heparin and start on Eliquis 5 mg b.i.d. and continue the verapamil that she is currently on.
--- NOTE | 2016-06-13 12:38 | P.CNPUL ---
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 Patient declined in the past thoracoscopic lung biopsy, she had poor tolerance to pirfenedone, she remains on prednisone at 5 mg daily, she is also on home oxygen, and she is on cough drops intermittently for chronic cough. In spite of that severity of her lung disease, the patient seems to be coping well and no major issues since her last visit except for chronic cough. Some dyspnea on exertion no fever no chills no hemoptysis no chest pain. Patient uses oxygen 30/11 and she is on prednisone 5 mg daily for what ever evaluated may have. Did not do well with pirfenedone.this patient's condition has been progressively getting worse over the past 3-4 days. The patient started having increased cough chest congestion and wheezing and shortness of breath. She initially presented to the emergency department on 06/07/2016 and she was found to have a chest x-ray consistent with pulmonary fibrosis. She was given doxycycline and she was discharged home. Subsequently, her condition progressively got worse and she became more symptomatic. She presented back again to the emergency department on 2016 and her repeat chest x-ray showed a left lower lobe infiltration and the right upper lobe infiltration consistent with pneumonia. She was started on Zosyn and Levaquin and she was admitted to the hospital for further evaluation and treatment. She also checked positive for influenza A and she was started on Tamiflu. She is currently on 40% oxygen nasal cannula which is above her routine oxygen requirements. No headaches. No change in mental status. No nausea vomiting or diarrhea. Echocardiogram was done and the patient was found to have a preserved LV function without any significant valvular abnormalities. There was tricuspid regurgitation and a pulmonary artery pressure moderately elevated in the mid 40s. No edema in lower extremities. No other complaints otherwise for now.note that the patient was also found to be in atrial fibrillation/flutter at the time of admission with rapid ventricular response. Her heart rate is controlled for now and the patient was started on IV heparin. His history of any cardiac arrhythmias. Review of Systems review of system was done and the positive findings are almost above in history of present illness Past Medical History Past Medical History: Hypertension, Osteoarthritis (OA), Respiratory Disorder Additional Past Medical History / Comment(s): Home O2 at 2L/[place] ATC, pulmonary fibrosis, Severe restrictive lung disease, glaucoma bilaterally, OA multiple joints, History of Any Multi-Drug Resistant Organisms: None Reported Past Surgical History: Orthopedic Surgery Additional Past Surgical History / Comment(s): right rotator cuff, colonoscopy- normal Past Anesthesia/Blood Transfusion Reactions: Motion Sickness, Postoperative Nausea & Vomiting (PONV) Past Psychological History: No Psychological Hx Reported Additional Psychological History / Comment(s): Pt resides alone. She uses no assistive device. She drives. She has home oxygen. Smoking Status: Former smoker (smoked 24 years , 1 PPD and she quit more than 30 years ago) Past Alcohol Use History: None Reported Additional Past Alcohol Use History / Comment(s): Pt started smoking as a teen and quit 35-40 yrs ago. Past Drug Use History: None Reported - Past Family History Father Family Medical History: Liver Disease Mother Family Medical History: Respiratory Disorder Additional Family Medical History / Comment(s): Pulmonary fibrosis- of this at the age of 83 or 84yrs. Medications and Allergies Home Medications Medication Instructions Recorded Confirmed Type Ascorbic Acid [Vitamin C] 1,000 mg PO BID 06/07/16 06/12/16 History Aspirin EC [Ecotrin Low Dose] 81 mg PO HS 06/07/16 06/12/16 History Celecoxib [CeleBREX] 200 mg PO BID PRN 06/07/16 06/12/16 History Cholecalciferol [Vitamin D3] 5,000 unit PO DAILY 06/07/16 06/12/16 History Cyanocobalamin (Vitamin B-12) 5,000 mcg PO DAILY 06/07/16 06/12/16 History [Vitamin B12] L.acidoph,Paracasei, B.lactis 2 cap PO DAILY 06/07/16 06/12/16 History [Probiotic] Latanoprost Ophth [Xalatan 0.005%] 1 drops BOTH EYES HS 06/07/16 06/12/16 History Mometasone/Formoterol [Dulera 200 2 puff INHALATION RT-BID 06/07/16 06/12/16 History Mcg/5 Mcg Inhaler] Multivits-Min/Iron/FA/Lutein 1 tab PO DAILY 06/07/16 06/12/16 History [Centrum Silver Women Tablet] N-Acetyl Cysteine 600 mg PO BID 06/07/16 06/12/16 History [place]-3 Fatty Acids/Fish Oil [Fish 1 cap PO BID 06/07/16 06/12/16 History Oil 1,000 mg Softgel] Turmeric Root Extract [Turmeric] 500 mg PO DAILY 06/07/16 06/12/16 History Verapamil HCl [Verapamil ER] 240 mg PO DAILY 06/07/16 06/12/16 History Vit A/Vit C/Vit E/Zinc/Copper 1 cap PO DAILY 06/07/16 06/12/16 History [ICAPS SOFTGEL] predniSONE 5 mg PO DAILY 06/07/16 06/12/16 History Calcium Carbonate [Calcium] 600 mg PO DAILY 06/12/16 06/12/16 History Allergies Allergy/AdvReac Type Severity Reaction Status Date / Time No Known Allergies Allergy Verified 06/12/16 11:06 Physical Exam Vitals: Vital Signs Temp Pulse Pulse Pulse Resp BP BP 06/13/16 08:40 96 06/13/16 08:28 96 06/13/16 08:00 98.8 F 91 16 156/72 06/13/16 04:00 98.4 F 99 18 142/73 06/13/16 00:00 98.1 F 90 16 140/65 06/12/16 20:25 88 06/12/16 20:14 88 06/12/16 20:00 99 F 91 16 142/65 06/12/16 16:00 98.8 F 79 20 117/54 06/12/16 15:55 88 06/12/16 15:45 88 06/12/16 14:27 98.2 F 86 18 101/57 06/12/16 13:12 86 93/52 06/12/16 12:42 88 98/45 06/12/16 12:27 90 106/51 Pulse Ox 06/13/16 08:40 06/13/16 08:28 94 L 06/13/16 08:00 92 L 06/13/16 04:00 94 L 06/13/16 00:00 92 L 06/12/16 20:25 06/12/16 20:14 06/12/16 20:00 95 06/12/16 16:00 97 06/12/16 15:55 06/12/16 15:45 06/12/16 14:27 96 06/12/16 13:12 94 L 06/12/16 12:42 95 06/12/16 12:27 94 L Intake and Output 06/12/16 06/13/16 06/13/16 22:59 06:59 14:59 Intake Total 388.503 320 281.25 Output Total 400 400 Balance -11.497 -80 281.25 Intake: IV 163.01 320 0.9 @40mls/hr 320 Heparin Sodium,Porcine/ 13.01 D5w Pmx 25,000 unit In Dextrose/Water 1 500ml. bag @ 12 UNITS/KG/HR 13. 82 mls/hr IV .Q24H [facility] Rx #:[id number] Piperacillin-Tazobactam 3 50 .375 gm In Dextrose/Water 1 50ml.bag @ 12.5 mls/hr IVPB ONCE STA Rx#: [id number] Sodium Chloride 0.9% 1, 100 000 ml @ 100 mls/hr IV . Q10H [facility] Rx#:[id number] Intake, IV Titration 105.493 181.25 Amount Heparin Sodium,Porcine/ 105.493 181.25 D5w Pmx 25,000 unit In Dextrose/Water 1 500ml. bag @ 12 UNITS/KG/HR 13. 82 mls/hr IV .Q24H [facility] Rx #:[id number] Oral 120 100 Output: Urine 400 400 Other: Voiding Method Toilet Toilet # Voids 0 Weight 55.7 kg 55.9 kg examination of the head is atraumatic normocephalic. Eyes no JVDs no goiter or neck masses. Neck is supple and there are no neck masses. No oropharyngeal thrush. Lung sounds are diminished and there is some coarse crackles in the mid and lower lung bah bilaterally. There is also scattered rhonchi and scattered expiratory wheezes throughout the lung bah bilaterally. Heart sounds are regular and the patient has a positive S1-S2. No significant murmurs could be appreciated. Abdomen is soft and there is no direct tenderness no rebound tenderness or guarding. Extremities show no edema no cyanosis or clubbing at this point. Results - Laboratory Findings CBC and BMP: 06/13/16 06:20 06/13/16 06:20 PT/INR, D-dimer PT 10.7 sec (9.0-12.0) 06/12/16 11:14 INR 1.1 (<1.1) 06/12/16 11:14 Abnormal lab findings: Abnormal Labs 06/12/16 06/13/16 06/13/16 15:39 06:20 06:20 WBC 23.1 H RBC 3.44 L Hgb 9.7 L Hct 30.8 L Neutrophils # 20.8 H Lymphocytes # 0.6 L Monocytes # 1.4 H APTT Total Protein 6.0 L Albumin 2.6 L Influenza Type A RNA Detected H 06/13/16 07:47 WBC RBC Hgb Hct Neutrophils # Lymphocytes # Monocytes # APTT 31.9 H Total Protein Albumin Influenza Type A RNA - Diagnostic Findings Chest x-ray: image reviewed Assessment and Plan Plan: impression 1 pulmonary fibrosis, likely due to hepatic from her fibrosis, however the UIP type 2 multilobar pneumonia involving the left lower lobe and the right upper lobe. Rule out influenza pneumonia, rule out routine secondary acquired pathogens complicated the patient's chronic pulmonary fibrosis secondary to pneumonia 3 new onset atrial fibrillation/atrial flutter with rapid ventricular response, rate is controlled and the patient is currently on IV heparin 4 chronic hypoxic respiratory failure secondary to above 5 severe restrictive lung disease secondary to pulmonary fibrosis 6 glaucoma Plan keep the patient drop with isolation. Proceed with Tamiflu. Proceed with routine antibiotic coverage. Bronchodilators. Systemic steroids. Keep O2 at 4 L of oxygen by nasal cannula. Repeat chest x-ray in the morning. Echocardiogram was noted. continued IV heparin. Very much concerned of an increased risk of developing respiratory failure due to this bilateral pneumonia. Repeat chest x-ray in the morning and consider removing this patient to the intensive care unit if there is any further decompensation in her breathing condition. The condition was related to the patient's family at length. I talked to the daughter. Cardiology will be seeing this patient regarding her arrhythmia. Further recommendations to follow based on her progress.
[2016-06-13] MEDS: guaiFENesin-Coden 100-10MG/5ML 10 ML CUP PO PRN ×2 (12:40→21:08)
[2016-06-13] MEDS: APIXABAN 5 MG TAB PO SCH ×2 (12:40→21:08)
--- NOTE | 2016-06-13 13:08 | P.PN ---
Subjective Patient is having persistent cough today. She noted some blood coming up with phlegm Objective - Vital Signs Vital signs: Vital Signs Temp 98.9 F 06/13/16 12:00 Pulse 81 06/13/16 12:00 Resp 18 06/13/16 12:00 BP 136/61 06/13/16 12:00 Pulse Ox 89 L 06/13/16 12:00 Intake & Output 06/12/16 06/13/16 06/13/16 18:59 06:59 18:59 Intake Total 120 588.503 281.25 Output Total 800 Balance 120 -211.497 281.25 Weight 55.7 kg 55.9 kg 55.9 kg Intake: IV 483.01 0.9 @40mls/hr 320 Heparin Sodium,Porcine/ 13.01 D5w Pmx 25,000 unit In Dextrose/Water 1 500ml. bag @ 12 UNITS/KG/HR 13. 82 mls/hr IV .Q24H [facility] Rx #:[id number] Piperacillin-Tazobactam 3 50 .375 gm In Dextrose/Water 1 50ml.bag @ 12.5 mls/hr IVPB ONCE STA Rx#: [id number] Sodium Chloride 0.9% 1, 100 000 ml @ 100 mls/hr IV . Q10H [facility] Rx#:[id number] Intake, IV Titration 105.493 181.25 Amount Heparin Sodium,Porcine/ 105.493 181.25 D5w Pmx 25,000 unit In Dextrose/Water 1 500ml. bag @ 12 UNITS/KG/HR 13. 82 mls/hr IV .Q24H [facility] Rx #:[id number] Oral 120 100 Output: Urine 800 Other: Voiding Method Toilet Toilet # Voids 0 - Exam General: The patient is awake and alert, in no distress Eye: there is normal conjunctiva bilaterally. Neck: The neck is supple, there is no JVD. Cardiovascular: Normal S1-S2, no S3-S4, no murmurs. Respiratory: Lungs are diminished with scattered rhonchi Gastrointestinal: Abdomen is soft, nontender Musculoskeletal: There is no pedal edema. Neurological:. Speech is normal. Skin: Skin is warm and dry - Labs CBC & Chem 7: 06/13/16 06:20 06/13/16 06:20 Labs: Abnormal Lab Results - Last 24 Hours (Table) 06/12/16 06/13/16 06/13/16 Range/Units 15:39 06:20 06:20 WBC 23.1 H (3.8-10.6) k/uL RBC 3.44 L (3.80-5.40) m/uL Hgb 9.7 L (11.4-16.0) gm/dL Hct 30.8 L (34.0-46.0) % Neutrophils # 20.8 H (1.3-7.7) k/uL Lymphocytes # 0.6 L (1.0-4.8) k/uL Monocytes # 1.4 H (0-1.0) k/uL APTT (22.0-30.0) sec Total Protein 6.0 L (6.3-8.2) g/dL Albumin 2.6 L (3.5-5.0) g/dL Influenza Type A RNA Detected H (Not Detectd) 06/13/16 Range/Units 07:47 WBC (3.8-10.6) k/uL RBC (3.80-5.40) m/uL Hgb (11.4-16.0) gm/dL Hct (34.0-46.0) % Neutrophils # (1.3-7.7) k/uL Lymphocytes # (1.0-4.8) k/uL Monocytes # (0-1.0) k/uL APTT 31.9 H (22.0-30.0) sec Total Protein (6.3-8.2) g/dL Albumin (3.5-5.0) g/dL Influenza Type A RNA (Not Detectd) Microbiology - Last 24 Hours (Table) 06/12/16 17:13 Gram Stain - Preliminary Sputum 06/12/16 17:13 Urine Culture - Preliminary Urine,Clean Catch Assessment and Plan Plan: 1. Influenza A pneumonia: Started on Tamiflu for 5 days course 75 mg twice daily 2. Superimposed bacterial pneumonia involving the right middle lobe: On IV Levaquin. 3. Chronic lung fibrosis and respiratory failure 4. Hemoptysis: Mild, secondary to severe cough and bronchitis. Ordered Robitussin-AC as needed 5. Sepsis on presentation: Blood cultures negative to date. Improved with IV fluid hydration and antibiotic. 6. New onset atrial fibrillation seen and evaluated by cardiology. Heart rate well controlled. Started on Eliquis for anticoagulation 7. Essential hypertension: Blood pressure well-controlled 8. GI prophylaxis Pepcid and DVT prophylaxis currently on anticoagulation
[2016-06-13] MEDS ORDERED: Magnesium Replacement Protocol 1 EACH MISC MISCELLANE PRN (13:09)
[2016-06-13] MEDS ORDERED: Potassium Replacement Protocol 1 EACH MISC MISCELLANE PRN (13:09)
[2016-06-13 14:53] LABS: Glucose,Whole Blood 225 mg/dL (75-99)
[2016-06-13] MEDS ORDERED: FUROSEMIDE 10 MG/ML 4 ML VIAL IV STA (15:11)
[2016-06-13 15:36] LABS: ABG PH 7.43 (7.35-7.45)
[2016-06-13 15:37] LABS: ABG Base Excess 1.2 mmol/L; ABG HCO3 25 mmol/L (21-25); ABG PCO2 39 mmHg (35-45); ABG PO2 75 mmHg (83-108); ABG TCO2 26 mmol/L (19-24)
[2016-06-13] MEDS: ASPIRIN 81 MG CHEW PO SCH (21:08)
[2016-06-13] MEDS: LATANOPROST 0.005% OPHTH DROPS 2.5 ML BTL BOTH EYES SCH (21:08)
[2016-06-13] MEDS: MELOXICAM 7.5 MG TAB PO PRN (21:33)
[2016-06-14] MEDS: ACETAMINOPHEN TAB 325 MG TAB PO PRN (03:08)
[2016-06-14 05:22] LABS: Basophils # (A) 0.1 k/uL (0-0.2); Basophils % (A) 0 %; CH 29.7; CHCM 33.1; Eosinophils % (A) 0 %; HCT 32.4 % (34.0-46.0); HDW 3.07; HGB 10.1 gm/dL (11.4-16.0); Luc # (Auto) 0.46; Luc % (Auto) 2; Lymphocytes # (A) 0.6 k/uL (1.0-4.8); Lymphocytes % (A) 2 %; MCH 28.3 pg (25.0-35.0); MCHC 31.2 g/dL (31.0-37.0); MCV 90.5 fL (80.0-100.0); Mean Platelet Volume 7.9; Monocytes # (A) 1.3 k/uL (0-1.0); Monocytes % (A) 5 %; Neutrophils # (A) 24.3 k/uL (1.3-7.7); Neutrophils % (A) 91 %; RBC 3.58 m/uL (3.80-5.40); RDW 14.5 % (11.5-15.5); WBC (Perox) 27.32
[2016-06-14 05:27] LABS: WBC 26.7 k/uL (3.8-10.6)
[2016-06-14 05:35] LABS: ALT 44 U/L (9-52); AST 38 U/L (14-36); Alkaline Phosphatase 103 U/L (38-126); Anion Gap 12 mmol/L; Blood Urea Nitrogen 17 mg/dL (7-17); Calcium 9.5 mg/dL (8.4-10.2); Carbon Dioxide 27 mmol/L (22-30); Chloride 104 mmol/L (98-107); Glucose 108 mg/dL (74-99); Magnesium 2.1 mg/dL (1.6-2.3); Non-African American GFR(MDRD) >60 (>60 ml/min/1.73 sqM); Potassium 3.7 mmol/L (3.5-5.1); Sodium 143 mmol/L (137-145); Total Bilirubin 0.7 mg/dL (0.2-1.3); Total Protein 6.5 g/dL (6.3-8.2)
[2016-06-14] MEDS ORDERED: POTASSIUM CHLORIDE ER 20 MEQ TAB.ER PO ONE (06:55)
[2016-06-14] MEDS: IPRATROPIUM-ALBUTEROL 3 ML NEB INHALATION SCH (07:04)
[2016-06-14] MEDS: SYMBICORT 160-4.5 MCG INHALER INHALATION SCH (07:04)
[2016-06-14] MEDS ORDERED: MORPHINE SULFATE 2 MG/ML SYRINGE IVP PRN (07:10)
[2016-06-14] MEDS ORDERED: MORPHINE SULFATE 2 MG/ML SYRINGE ONE (07:12)
[2016-06-14] MEDS ORDERED: MORPHINE SULFATE 2 MG/ML SYRINGE IV PRN (07:40)
[2016-06-14] MEDS ORDERED: LORazepam 2 MG/ML SYRINGE IV PRN ×2 (07:40→13:47)
[2016-06-14] MEDS ORDERED: ACETAMINOPHEN SUPPOSITORY 650 MG SUPP RECTAL PRN (07:40)
[2016-06-14] MEDS ORDERED: ARTIFICIAL TEARS-HYPROMELLOSE DROPS 15 ML BTL BOTH EYES PRN (07:40)
[2016-06-14] MEDS ORDERED: DRY MOUTH SPRAY 44.3 SPRAY/44.3 ML SPRAY MUCOUS MEM PRN (07:40)
[2016-06-14] MEDS ORDERED: ATROPINE OPHTH SOLN 1% 5ML BTL SUBLINGUAL PRN (07:41)
[2016-06-14] MEDS ORDERED: MORPHINE SULFATE (100 MG/2 ML) 100 MG in SODIUM CHLORIDE 0.9% 100 ML IV SCH (08:00)
[2016-06-14] MEDS: SCOPOLAMINE 1.5MG/72HR PATCH TRANSDERM PRN ×2 (08:12→11:50)
[2016-06-14 08:58] VITALS: BP 177/78; TEMP 98.2
[2016-06-14 09:17] VITALS: RESP 32
[2016-06-14] MEDS ORDERED: ONDANSETRON 4 MG/2 ML VIAL IVP PRN (10:33)
[2016-06-14] MEDS ORDERED: ONDANSETRON 4 MG/2 ML VIAL ONE (10:34)
[2016-06-14 11:04] VITALS: PULSE 79
[2016-06-14] MEDS ORDERED: METOCLOPRAMIDE 5 MG/ML 2 ML VIAL IVP PRN (12:41)
[2016-06-14] MEDS: METOCLOPRAMIDE 5 MG/ML 2 ML VIAL IVP SCH ×2 (12:59→18:24)
[2016-06-14] MEDS ORDERED: MORPHINE ORAL SOLN 20 MG/1 ML ORAL SYRINGE PO PRN (13:48)
--- NOTE | 2016-06-14 13:53 | P.PN ---
Subjective Patient is complaining of significant nausea that is not improving with IV Zofran. She is also complaining of shortness of breath. She is currently on comfort care. Objective - Vital Signs Vital signs: Vital Signs Temp 98.2 F 06/14/16 08:00 Pulse 79 06/14/16 10:56 Resp 32 H 06/14/16 10:56 BP 177/78 06/14/16 08:00 Pulse Ox 87 L 06/14/16 09:00 Intake & Output 06/13/16 06/14/16 06/14/16 18:59 06:59 18:59 Intake Total 361.25 480 20 Output Total 2070 573 150 Balance -1708.75 -93 -130 Weight 55.9 kg 55 kg Intake: IV 220 20 Sodium Chloride 0.9% 1, 220 20 000 ml @ 20 mls/hr IV . Q24H [facility] Rx#:[id number] Intake, IV Titration 261.25 20 Amount Heparin Sodium,Porcine/ 181.25 D5w Pmx 25,000 unit In Dextrose/Water 1 500ml. bag @ 12 UNITS/KG/HR 13. 82 mls/hr IV .Q24H [facility] Rx #:[id number] Sodium Chloride 0.9% 1, 80 20 000 ml @ 20 mls/hr IV . Q24H [facility] Rx#:[id number] Oral 100 240 Output: Urine 2070 573 150 Other: Voiding Method Indwelling Catheter Indwelling Catheter Indwelling Catheter # Voids 0 # Bowel Movements 0 - Exam General: The patient is awake and alert. She appeared uncomfortable and nauseous. Eye: there is normal conjunctiva bilaterally. Neck: The neck is supple, there is no JVD. Cardiovascular: Normal S1-S2, no S3-S4, no murmurs. Respiratory: Lungs are diminished with scattered rhonchi Gastrointestinal: Abdomen is soft, nontender Musculoskeletal: There is no pedal edema. Neurological:. Speech is normal. Skin: Skin is warm and dry - Labs CBC & Chem 7: 06/14/16 04:55 06/14/16 04:55 Labs: Abnormal Lab Results - Last 24 Hours (Table) 06/13/16 06/13/16 06/14/16 Range/Units 14:52 15:14 04:55 WBC 26.7 H* (3.8-10.6) k/uL RBC 3.58 L (3.80-5.40) m/uL Hgb 10.1 L (11.4-16.0) gm/dL Hct 32.4 L (34.0-46.0) % Neutrophils # 24.3 H (1.3-7.7) k/uL Lymphocytes # 0.6 L (1.0-4.8) k/uL Monocytes # 1.3 H (0-1.0) k/uL ABG pO2 75 L (83-108) mmHg ABG Total CO2 26 H (19-24) mmol/L Glucose (74-99) mg/dL POC Glucose (mg/dL) 225 H (75-99) mg/dL AST (14-36) U/L Albumin (3.5-5.0) g/dL 06/14/16 Range/Units 04:55 WBC (3.8-10.6) k/uL RBC (3.80-5.40) m/uL Hgb (11.4-16.0) gm/dL Hct (34.0-46.0) % Neutrophils # (1.3-7.7) k/uL Lymphocytes # (1.0-4.8) k/uL Monocytes # (0-1.0) k/uL ABG pO2 (83-108) mmHg ABG Total CO2 (19-24) mmol/L Glucose 108 H (74-99) mg/dL POC Glucose (mg/dL) (75-99) mg/dL AST 38 H (14-36) U/L Albumin 2.8 L (3.5-5.0) g/dL Microbiology - Last 24 Hours (Table) 06/12/16 17:13 Gram Stain - Preliminary Sputum Sputum Culture - Preliminary 06/12/16 17:13 Urine Culture - Final Urine,Clean Catch Assessment and Plan Plan: This is a 76-year-old female with past medical history noted below significant for underlying lung fibrosis with restrictive lung disease who presented to the hospital with worsening dyspnea and shortness of breath. Patient was found to have right middle lobe pneumonia and was positive for influenza A. Patient was treated aggressively for the first 24 hours but unfortunately continued to deteriorate. She was hypoxic and was eventually transferred to the intensive care unit. Patient was placed on BiPAP for a short period of time but subsequently refused to wear her BiPAP and elected to pursue comfort measures. A discussion was done with her and her family at the bedside by the rope maker and patient elected to withdraw care. She wants to be comfortable. She was transferred outside at the intensive care unit and started on comfort measures. Today, I met with the patient and her daughters at the bedside one of them is well-known to me as she is a nurse. We discussed goals of care and hospice philosophy. We will consult hospice as patient will be enrolled in hospice. We will continue to monitor her clinical status closely. Comfort medications ordered in the chart. 1. Influenza A pneumonia 2. Superimposed bacterial pneumonia involving the right middle lobe 3. Chronic lung fibrosis and respiratory failure 4. Hemoptysis: Mild, secondary to severe cough and bronchitis 5. Sepsis on presentation 6. New onset atrial fibrillation 7. Essential hypertension
--- NOTE | 2016-06-14 13:58 | P.PN ---
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 Patient declined in the past thoracoscopic lung biopsy, she had poor tolerance to pirfenedone, she remains on prednisone at 5 mg daily, she is also on home oxygen, and she is on cough drops intermittently for chronic cough. In spite of that severity of her lung disease, the patient seems to be coping well and no major issues since her last visit except for chronic cough. Some dyspnea on exertion no fever no chills no hemoptysis no chest pain. Patient uses oxygen 30/11 and she is on prednisone 5 mg daily for what ever evaluated may have. Did not do well with pirfenedone.this patient's condition has been progressively getting worse over the past 3-4 days. The patient started having increased cough chest congestion and wheezing and shortness of breath. She initially presented to the emergency department on 06/07/2016 and she was found to have a chest x-ray consistent with pulmonary fibrosis. She was given doxycycline and she was discharged home. Subsequently, her condition progressively got worse and she became more symptomatic. She presented back again to the emergency department on 2016 and her repeat chest x-ray showed a left lower lobe infiltration and the right upper lobe infiltration consistent with pneumonia. She was started on Zosyn and Levaquin and she was admitted to the hospital for further evaluation and treatment. She also checked positive for influenza A and she was started on Tamiflu. She is currently on 40% oxygen nasal cannula which is above her routine oxygen requirements. No headaches. No change in mental status. No nausea vomiting or diarrhea. Echocardiogram was done and the patient was found to have a preserved LV function without any significant valvular abnormalities. There was tricuspid regurgitation and a pulmonary artery pressure moderately elevated in the mid 40s. No edema in lower extremities. No other complaints otherwise for now.note that the patient was also found to be in atrial fibrillation/flutter at the time of admission with rapid ventricular response. Her heart rate is controlled for now and the patient was started on IV heparin. His history of any cardiac arrhythmias. On 06/14/2016 the patient is being seen in follow-up. As mentioned earlier, the patient has chronic hypoxic respiratory failure, chronic restrictive lung disease secondary to pulmonary fibrosis that was felt to be related to IPF. She was hospitalized with multilobar pneumonia thought to be related to influenza. The patient was seen on the medical floor yesterday and over the afternoon the patient got transferred to the intensive care unit because of worsening shortness of breath and hypoxemia. She was child to go on BiPAP which she failed due to increased anxiety and now willing to use her treatment. She was placed on 100% on a beta facemask. In the director of volunteer services hours, the patient was getting more short of breath and she was getting into significant respiratory distress. I have suggested intubation mechanical ventilation for this patient however the patient was very clear to her family and herself that she didn't want any type of invasive procedures such as intubated or mechanical ventilation. She made the decision to proceed with comfort care measures. Family is at the bedside. Atelectatic discussion with the daughter which was willing to go with the patient's wishes of comfort care measures. Based on this , The patient 100% nonrebreather facemask. I move the patient to the oncology floor for comfort care measurements and end-of-life care. She seemed to be very comfortable with morphine. The primary care physician was informed of this changes.
[2016-06-14] MEDS ORDERED: MORPHINE SULFATE ER 15 MG TABLET PO SCH (16:00)
[2016-06-14] MEDS: SODIUM CHLORIDE 0.9% 1,000 ML IV SCH (18:20)
--- NOTE | 2016-06-17 08:56 | CDI ---
In responding to this query, please exercise your independent professional judgment. The [facility] Coding Staff and Clinical Documentation Specialists appreciate your assistance in clarifying documentation, maintaining compliance with coding guidelines, accurately documenting patients condition and capturing severity of illness. The fact that a question is asked does not imply that any particular answer is desired or expected. Communication forms are a method of clarifying documentation and are not made part of the Legal Health Record. Thank you in advance for your clarification. Last Revision, July 2015 Екатерина Borrego [address] [place] [address] Documentation Clarification Form Date: 06/17/2016 8:40:00 AM From: Daysi Davidson CCS, CCDS Admit Date: 06/12/2016 12:21:00 PM Patient Name: Jennifer Ordoñez Visit Number: [id number] Discharge Date: 06/14/2016 Dr. Benjamin Randall: 76 yo female, presented to ER with cough, worsening SOB and tachycardia. Per H&P, diagnosed with Sepsis secondary to pneumonia, New onset Atrial flutter and Atrial fibrillation History/Risk Factors: Pulmonary fibrosis, Interstitial Lung disease, Hypertension, COPD, Bronchitis, O2 & systemic & inhalation steroid dependent. Former smoker. Clinical Indicators: VS: T 99.4 - 101.4; P 107 irregular; R 24 - 32 (SOB, cough); BP 140/93, 93/52 , 177/78; PO 93 2Lnc - 85 15% nrb. ABG/CBG: pH (7.43), pCO2 (39), pHCO3 75* Treatment: IV Levaquin, IV Zosyn, Cardizem & Heparin drips, IV fluids, .O2 3Lnc , advanced to 5Lnc, VentiMask & NRB 15%, failed BiPAP. DNR, no intubation or ventilation. Consults: Cardiology, Pulmonary In your professional opinion, can you please clarify if these findings signify one of the following conditions? Acuity: o Acute o Chronic o Acute on Chronic Respiratory Status: o Respiratory failure o Respiratory failure with hypercapnia o Respiratory failure with hypoxia o Acute Respiratory Distress o Other Diagnosis, please specify o Unable to determine Please document in your progress notes and discharge summary in order to capture severity of illness and risk of mortality. Include clinical findings that support your diagnosis. FYI: Press F11 to launch patient chart. Place X here if this finding has no clinical significance, is not applicable or if you are not able to provide any additional documentation. Thank You. SONIA
--- NOTE | 2016-06-18 11:59 | P.DS ---
Providers Date of admission: 06/12/16 12:21 Expected date of discharge: 06/18/16 Attending physician: Nick Sagastume Primary care physician: Meghan Ramirez [place] [facility] Course: This is a 76-year-old female with past medical history noted below significant for underlying lung fibrosis with restrictive lung disease who presented to the hospital with worsening dyspnea and shortness of breath. Patient was found to have right middle lobe pneumonia and was positive for influenza A. Patient was treated aggressively for the first 24 hours but unfortunately continued to deteriorate. She was hypoxic and was eventually transferred to the intensive care unit. Patient was placed on BiPAP for a short period of time but subsequently refused to wear her BiPAP and elected to pursue comfort measures. A discussion was done with her and her family at the bedside by the steel pourer helper and patient elected to withdraw care. She wants to be comfortable. She was transferred outside at the intensive care unit and started on comfort measures. She eventually . Please refer to the nursing documentation for the exact date and time of . Below is a list of her medical problems 1. Influenza A pneumonia 2. Superimposed bacterial pneumonia involving the right middle lobe 3. Acute on chronic hypoxic respiratory failure 4. Acute respiratory distress syndrome 5. Chronic lung fibrosis and respiratory failure 6. Hemoptysis 7. Sepsis on presentation 8. New onset atrial fibrillation 9. Essential hypertension Plan - Discharge Summary Discharge Medication List Ascorbic Acid [Vitamin C] 1,000 mg PO BID 06/07/16 [History] Aspirin EC [Ecotrin Low Dose] 81 mg PO HS 06/07/16 [History] Celecoxib [CeleBREX] 200 mg PO BID PRN 06/07/16 [History] Cholecalciferol [Vitamin D3] 5,000 unit PO DAILY 06/07/16 [History] Cyanocobalamin (Vitamin B-12) [Vitamin B12] 5,000 mcg PO DAILY 06/07/16 [History ] Doxycycline Hyclate [Vibramycin] 100 mg PO BID #14 cap 06/07/16 [Rx] L.acidoph,Paracasei, B.lactis [Probiotic] 2 cap PO DAILY 06/07/16 [History] Latanoprost Ophth [Xalatan 0.005%] 1 drops BOTH EYES HS 06/07/16 [History] Mometasone/Formoterol [Dulera 200 Mcg/5 Mcg Inhaler] 2 puff INHALATION RT-BID [History] Multivits-Min/Iron/FA/Lutein [Centrum Silver Women Tablet] 1 tab PO DAILY [History] N-Acetyl Cysteine 600 mg PO BID 06/07/16 [History] Irma-3 Fatty Acids/Fish Oil [Fish Oil 1,000 mg Softgel] 1 cap PO BID 06/07/16 [ History] Turmeric Root Extract [Turmeric] 500 mg PO DAILY 06/07/16 [History] Verapamil HCl [Verapamil ER] 240 mg PO DAILY 06/07/16 [History] Vit A/Vit C/Vit E/Zinc/Copper [ICAPS SOFTGEL] 1 cap PO DAILY 06/07/16 [History] predniSONE 5 mg PO DAILY 06/07/16 [History] predniSONE 60 mg PO DAILY #30 tab 06/07/16 [Rx] Calcium Carbonate [Calcium] 600 mg PO DAILY 06/12/16 [History] Follow up Appointment(s)/Referral(s): Meghan Ramirez MD [Primary Care Provider] - 1-2 days Discharge Disposition: - Preliminary Cause of Preliminary Cause of : Acute respiratory failure
== END 2016-06-14 22:43 | disposition expired | DRG 871 ==
LOC: EC 10:37 → 6SEL 12:21 → 6ICU 06-13 14:45 → 5MS5E 06-14 10:27
PROVIDERS: ADMIT Internal Medicine; ATTEND Internal Medicine
DX: A41.9 Sepsis, unspecified organism (principal); J96.21 Acute and chronic respiratory failure with hypoxia; J15.9 Unspecified bacterial pneumonia; J84.9 Interstitial pulmonary disease, unspecified; I48.92 Unspecified atrial flutter; J84.112 Idiopathic pulmonary fibrosis; R04.2 Hemoptysis; Z99.81 Dependence on supplemental oxygen; J44.0 Chronic obstructive pulmonary disease with (acute) lower respiratory infection; J44.1 Chronic obstructive pulmonary disease with (acute) exacerbation; I07.1 Rheumatic tricuspid insufficiency; Z66 Do not resuscitate; Z51.5 Encounter for palliative care; J10.1 Influenza due to other identified influenza virus with other respiratory manifestations; I48.91 Unspecified atrial fibrillation; I10 Essential (primary) hypertension; J45.909 Unspecified asthma, uncomplicated; J98.4 Other disorders of lung; R11.0 Nausea; R01.1 Cardiac murmur, unspecified; M15.9 Polyosteoarthritis, unspecified; H40.9 Unspecified glaucoma; Z79.82 Long term (current) use of aspirin; Z79.1 Long term (current) use of non-steroidal anti-inflammatories (NSAID); Z87.891 Personal history of nicotine dependence; Z79.52 Long term (current) use of systemic steroids; Z79.899 Other long term (current) drug therapy; Z86.19 Personal history of other infectious and parasitic diseases; Z87.09 Personal history of other diseases of the respiratory system; Z83.79 Family history of other diseases of the digestive system; Z83.6 Family history of other diseases of the respiratory system
CPT/HCPCS: 36415; 71010; 71020; 80053; 81003; 82805; 83605; 83735; 84100; 84439; 84443; 84484; 85025; 85610; 85730; 87040; 87070; 87086; 87205; 87502; 93005; 93306; 94640; 94660; 94760; 96365; 96366; 96368; 96375; 96376; 99291